=== PATIENT | female | born 1975 | race Caucasian/White ===

== ENCOUNTER 2019-05-14 23:29 | Emergency (ER) | payer MEDICAID ==
[~2019-05-14] VITALS: Ht 160 cm; Wt 72.0 kg
[~2019-05-14 23:29] MED LIST: BEN25 PO; CLOT30CR24 TOP; HYDR-4011 PO; IBUP800T48 PO
[2019-05-14 23:33] VITALS: Ht 160 cm; Wt 72.0 kg
[2019-05-15] MEDS ORDERED: HYDROCODONE/APAP (5/325) TAB PO ONE (00:30)
[2019-05-15 01:51] VITALS: BP 151/81; PULSE 79; RESP 16
== END 2019-05-15 01:52 | disposition home or self-care (01) ==
LOC: E/R 23:29
DX: N64.4 Mastodynia (principal)
CPT/HCPCS: 36415; 71045; 81025; 84484; 93005; Z7502; Z7610